=== PATIENT | male | born 1945 | race Caucasian/White ===

== ENCOUNTER 2018-07-23 12:34 | Observation (INO) | payer OTHER ==
--- NOTE | 2018-07-23 14:43 | CT ---
CT BRAIN: History: Dizziness. Technique: Noncontrast enhanced CT images of the brain obtained. FINDINGS: The calvarium is unremarkable with no evidence of fractures or lesions. CT images of the brain are unremarkable. No evidence of acute intracranial masses, hemorrhages, strok es or contusions seen. IMPRESSION: Normal CT brain. POS: [facility]
[2018-07-23 14:59] LABS: #Basophils 0.1 thou/uL (0.0-0.2); #Eosinphils 0.1 thou/uL (0.0-0.7); #Lymphocytes 1.9 thou/uL (1.20-3.40); #Monocytes 0.5 thou/uL (0.11-0.59); #Neutrophils 2.8 thou/uL (1.40-6.50); %Basophils 1.5 % (0.0-1.0); %Eosinophils 1.8 % (0.0-10.0); %Lymphocytes 35.4 % (21.0-51.0); %Monocytes 9.1 % (0.0-10.0); %Neutrophils 52.2 % (42.0-75.0); Hemoglobin 15.6 g/dL (14.0-18.0); Mean Corpuscular HGB CONC 32.6 g/dL (32.0-36.0); Mean Corpuscular Hemoglobin 31.4 pg (27.0-31.0); Mean Corpuscular Volume 96.2 fL (78.0-98.0); Mean Platelet Volume 6.7 fL (7.4-10.4); Platelet Count 240 thou/uL (130-400); RBC Distribution Width 11.9 % (11.5-14.5); Red Blood Cell (RBC) Count 4.97 mill/uL (4.70-6.10); White Blood Cell (WBC) Count 5.4 thou/uL (4.8-10.8)
[2018-07-23 15:21] LABS: ALT (SGPT) 18 U/L (8-55); AST (SGOT) 22 U/L (5-34); Alkaline Phosphatase 58 U/L (40-150); Anion Gap 9 mmol/L (10-20); BUN (Urea Nitrogen) 20 mg/dL (8.4-25.7); Bilirubin, Total 0.6 mg/dL (0.2-1.2); Calc. Creatinine Clearance 0 mL/min (70-130); Calcium 8.9 mg/dL (7.8-10.44); Carbon Dioxide 29 mmol/L (23-31); Chloride 107 mmol/L (98-107); Estimated GFR-MDRD 59; Globulin 3.4 g/dL (2.4-3.5); Glucose 99 mg/dL (83-110); Potassium 4.7 mmol/L (3.5-5.1); Protein, Total 7.4 g/dL (5.8-8.1); Sodium 140 mmol/L (136-145)
[2018-07-23 15:26] LABS: CKMB 3.3 ng/mL (0-6.6); Troponin I Less than 0.010 ng/mL (< 0.028)
[2018-07-23 18:54] VITALS: BMI 23.0
[2018-07-23 19:26] LABS: Troponin I Less than 0.010 ng/mL (< 0.028)
[2018-07-23] MEDS ORDERED: hydrALAZINE 20 MG/ML VIAL SLOW IVP PRN (19:54)
[2018-07-23] MEDS ORDERED: Lisinopril 20 MG TAB PO SCH (21:00)
[2018-07-23 22:50] LABS: Troponin I Less than 0.010 ng/mL (< 0.028)
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
[2018-07-24] MEDS ORDERED: Hydrochlorothiazide 25 MG TAB PO SCH (09:00)
[2018-07-24] MEDS ORDERED: Aspirin 81 mg Enteric Coated Tablet PO SCH (09:00)
[2018-07-24 12:09] VITALS: TEMP 98.7
[2018-07-24 12:40] VITALS: BP 147/89
--- NOTE | 2018-07-25 14:07 | DIS ---
DATE OF ADMISSION: 07/23/2018 DATE OF DISCHARGE: 07/24/2018 DISCHARGE DIAGNOSES: 1. Near syncope. 2. Hypertension. HISTORY OF PRESENT ILLNESS: The patient is a 73-year-old male who continues to work at [employer]. Kassandra hollins was walking from his work to his vehicle when he had the abrupt onset of severe lightheadedness and near syncopal sensation. The patient rested for a moment and then felt recovered enough that he got in his vehicle and drove himself home. He called his primary care provider once he got home and was instructed to come to the hospital for further evaluation. HOSPITAL COURSE: The patient's initial blood pressure readings were elevated. He had recorded readi ngs as high as 183/110. His exam was unremarkable. His troponins were normal as were his EKG. Subs equently, the patient was placed in observation status. The patient remained overnight in observatio n status on telemetry monitoring. He had no significant ectopy or arrhythmias. He had serial tropon ins, which remained negative and he remained asymptomatic even with significant activity. He had ech ocardiogram obtained and had a CT scan of the head with negative findings. With that, the patient wa s felt to be more likely suffering from symptomatic hypertension which had improved substantially ove rnight, at the time of discharge was down considerably. The patient had previously been evaluated by Dr. Hatch for a very similar episode 2 years prior. Her office was contacted and he was able to get an appointment that afternoon to follow up there for any further evaluation and workup. PHYSICAL EXAMINATION: VITAL SIGNS: At the time of discharge, temperature is 98.7, pulse 56, respirations were 20, blood pr essure was 147/89. GENERAL: The patient was awake, alert, oriented, pleasant, cooperative. HEART: Regular rate and rhythm without murmurs. LUNGS: Clear bilaterally. ABDOMEN: Soft, nontender, nondistended, positive bowel sounds. EXTREMITIES: Warm and dry with no cyanosis, clubbing or edema. DISPOSITION: The patient is discharged to home. DISCHARGE INSTRUCTIONS: His activity is as tolerated. He should remain on a heart healthy diet. He will remain on aspirin 81 mg p.o. q. day as well as lisinopril 20 mg p.o. q. day. We will also add hydrochlorothiazide 25 mg 1 p.o. q. day. He is to follow up with Dr. Hatch' office on the afternoon o f discharge. He can follow up on his echocardiogram results there. The patient is welcome to return to the emergency department in anytime should he have any problems prior to follow up.
== END 2018-07-24 14:36 | disposition home or self-care (01) ==
LOC: ERS 12:34 → 2SW 18:21
PROVIDERS: ADMIT Internal Medicine; ATTEND Internal Medicine
DX: R55 Syncope and collapse (principal); I10 Essential (primary) hypertension; Z79.82 Long term (current) use of aspirin; Z79.899 Other long term (current) drug therapy
CPT/HCPCS: 36415; 70450; 80053; 82553; 84484; 85025; 93005; 93306; G0378

== ENCOUNTER 2022-02-07 08:49 | Emergency (ER) | payer OTHER ==
[2022-02-07 09:17] LABS: #Basophils 0.1 thou/uL (0.0-0.2); #Eosinphils 0.3 thou/uL (0.0-0.7); #Monocytes 0.6 thou/uL (0.11-0.59); #Neutrophils 2.4 thou/uL (1.40-6.50); %Basophils 1.6 % (0.0-1.0); %Eosinophils 5.3 % (0.0-10.0); %Lymphocytes 37.1 % (21.0-51.0); %Monocytes 11.3 % (0.0-10.0); %Neutrophils 44.7 % (42.0-75.0); Hemoglobin 15.3 g/dL (14.0-18.0); Mean Corpuscular HGB CONC 33.4 g/dL (32.0-36.0); Mean Platelet Volume 6.8 fL (7.4-10.4); Platelet Count 238 thou/uL (130-400); RBC Distribution Width 11.9 % (11.5-14.5); Red Blood Cell (RBC) Count 4.77 mill/uL (4.70-6.10); White Blood Cell (WBC) Count 5.5 thou/uL (4.8-10.8)
[2022-02-07 09:37] LABS: ALT (SGPT) 24 U/L (8-55); AST (SGOT) 28 U/L (5-34); Albumin 4.1 g/dL (3.4-4.8); Alkaline Phosphatase 67 U/L (40-110); Anion Gap 13 mmol/L (10-20); BUN (Urea Nitrogen) 17 mg/dL (8.4-25.7); Bilirubin, Total 1.2 mg/dL (0.2-1.2); Calc. Creatinine Clearance 0 mL/min (70-130); Calcium 9.2 mg/dL (7.8-10.44); Carbon Dioxide 24 mmol/L (23-31); Chloride 106 mmol/L (98-107); Globulin 3.3 g/dL (2.4-3.5); Glucose 91 mg/dL (83-110); Lipase 46 U/L (8-78); Protein, Total 7.4 g/dL (5.8-8.1); Sodium 139 mmol/L (136-145)
[2022-02-07] MEDS ORDERED: Aspirin Chewable 81 MG TAB ONE (09:45)
== END 2022-02-07 12:44 | disposition home or self-care (01) ==
LOC: ERS 08:49
DX: R07.9 Chest pain, unspecified (principal); E78.5 Hyperlipidemia, unspecified; E78.00 Pure hypercholesterolemia, unspecified; I10 Essential (primary) hypertension; Z79.899 Other long term (current) drug therapy
CPT/HCPCS: 36415; 71045; 80053; 83690; 84484; 85025; 93005